=== PATIENT | female | born 1990 | race Caucasian/White ===

== ENCOUNTER → 2016-10-03 | Outpatient (CLI) | payer OTHER ==
[2016-10-03 13:43] LABS: BASO # 0.3 K/mm3 (0.0-0.2); BASO % 3.2 % (0.0-1.0); EOS # 0.2 K/mm3 (0.0-0.50); LARGE UNSTAINED CELL # 0.2 K/mm3 (0.0-0.4); LARGE UNSTAINED CELL % 2.4 % (0.0-4.0); LYMPH # 1.9 K/mm3 (1.5-6.5); LYMPH % 16.7 % (24.0-44.0); MEAN CORPUSCULAR HEMOGLOBIN 32.1 pg (27.0-33.0); MEAN CORPUSCULAR HGB CONC 35.7 g/dl (32.0-36.5); MONO # 0.6 K/mm3 (0.0-0.8); MONO % 5.8 % (0.0-5.0); NEUTROPHILS # 6.8 K/mm3 (1.8-7.7); NEUTROPHILS % 69.9 % (36.0-66.0); PLATELET COUNT, AUTOMATED 225 k/mm3 (150-450); RED CELL DISTRIBUTION WIDTH 12.4 % (11.5-14.5); WHITE BLOOD COUNT 9.8 K/mm3 (4.0-10.0)
[2016-10-03 16:59] LABS: HIV SCRN NEGATIVE (NEGATIVE); HIV SCRN1 NEGATIVE (NEGATIVE)
[2016-10-03 17:00] LABS: CONTROL LINE INT CTR LINE PRESENT
[2016-10-05 10:25] LABS: HBsAg Prenatal NEGATIVE (NEGATIVE)
== END ==
LOC: M SMT 09:50
PROVIDERS: ATTEND Obstetrics & Gynecology
DX: Z34.81 Encounter for supervision of other normal pregnancy, first trimester (principal)

== ENCOUNTER → 2016-11-08 | Outpatient (CLI) | payer OTHER | LOC: M SMT 15:37 | PROVIDERS: ATTEND Advanced Practice Midwife | DX: Z13.79 Encounter for other screening for genetic and chromosomal anomalies (principal); Z3A.00 Weeks of gestation of pregnancy not specified ==

== ENCOUNTER → 2016-11-22 | Outpatient (REF) | payer OTHER | LOC: M LAB REF 13:04 → EEVIPCON 13:04 | PROVIDERS: ATTEND Physician Assistant Medical | DX: L23.89 Allergic contact dermatitis due to other agents (principal) ==

== ENCOUNTER → 2017-01-04 | Outpatient (CLI) | payer OTHER ==
--- NOTE | 2017-01-05 03:46 | REP ---
Clinical: Anatomical evaluation. Comparison: None . Findings: Examination demonstrates a single live intrauterine in transverse (head to maternal right side) presentation. motion is identified by technologist. Placenta is noted posteriorly and grade zero without evidence for placenta previa or abruption. Amniotic fluid volume is normal. Cervix measures 4.0 cm in length and appears closed. No evidence for nuchal cord. Gestational age by current measurements 21 weeks 4 days with DEANA 05/13/2017 . FHR equals 147 beats per minute. BPD 5.2 cm 21 weeks 5 days HC 19.4 cm 21 weeks 4 days AC 17.7 cm 22 weeks 1 day FL 3.7 cm 21 weeks 5 days HL 3.7 cm 23 weeks 0 days HC/AC ratio 1.10 Estimated weight 476 grams ( 63rd percentile). Anatomical assessment demonstrates normal structures including cranium, choroid plexus, cavum, cerebellum/posterior fossa, facial features, lungs, four-chamber heart/ventricular outflow tracts, diaphragm, stomach, cord insertion/three-vessel cord, kidneys/bladder, spine, and extremities. Impression: Single live intrauterine in transverse lie. Anatomical assessment is complete and normal. Signed by Salas Guerra MD 01/05/2017 03:38 A
== END ==
LOC: M SMT 14:53
PROVIDERS: ATTEND Advanced Practice Midwife
DX: Z36 Encounter for antenatal screening of mother (principal); Z3A.21 21 weeks gestation of pregnancy

== ENCOUNTER → 2017-02-06 | Outpatient (CLI) | payer OTHER ==
[2017-02-06 17:22] LABS: MEAN CORPUSCULAR HEMOGLOBIN 33.4 pg (27.0-33.0); MEAN CORPUSCULAR HGB CONC 34.8 g/dl (32.0-36.5); MEAN CORPUSCULAR VOLUME 95.9 fl (80.0-96.0); RED CELL DISTRIBUTION WIDTH 12.7 % (11.5-14.5); WHITE BLOOD COUNT 12.3 K/mm3 (4.0-10.0)
== END ==
LOC: M SMT 14:36
PROVIDERS: ATTEND Advanced Practice Midwife
DX: Z34.82 Encounter for supervision of other normal pregnancy, second trimester (principal)

== ENCOUNTER → 2017-04-14 | Outpatient (REF) | payer OTHER ==
[~2017-04-14] MED LIST: ACET50TA PO; COLA100C5 PO; IBUP-1114 PO; PRENTAB9 PO; ROLA1CHW PO
== END ==
LOC: M LAB REF 17:28
PROVIDERS: ATTEND Specialist
DX: Z34.83 Encounter for supervision of other normal pregnancy, third trimester (principal)

== ENCOUNTER → 2017-04-19 | Outpatient (CLI) | payer OTHER ==
[2017-04-19 13:37] LABS: BASO % 0.4 % (0.0-1.0); EOS # 0.2 K/mm3 (0.0-0.50); EOS % 2.8 % (0.0-3.0); LARGE UNSTAINED CELL # 0.2 K/mm3 (0.0-0.4); LARGE UNSTAINED CELL % 2.8 % (0.0-4.0); LYMPH # 1.2 K/mm3 (1.5-6.5); MEAN CORPUSCULAR HEMOGLOBIN 32.3 pg (27.0-33.0); MEAN CORPUSCULAR HGB CONC 34.7 g/dl (32.0-36.5); MONO # 0.6 K/mm3 (0.0-0.8); MONO % 7.6 % (0.0-5.0); NEUTROPHILS # 5.3 K/mm3 (1.8-7.7); NEUTROPHILS % 70.4 % (36.0-66.0); PLATELET COUNT, AUTOMATED 161 k/mm3 (150-450); RED CELL DISTRIBUTION WIDTH 12.7 % (11.5-14.5); WHITE BLOOD COUNT 7.6 K/mm3 (4.0-10.0)
[2017-04-19 14:14] LABS: ALT/SGPT 16 U/L (12-78); AST/SGOT 19 U/L (15-37); BILIRUBIN,TOTAL 0.3 MG/DL (0.2-1.0); CREATININE FOR GFR 0.65 MG/DL (0.55-1.02); GLOMERULAR FILTRATION RATE > 60.0 (>60); URIC ACID 4.6 MG/DL (2.6-6.0)
== END ==
LOC: M SMT 11:11
PROVIDERS: ATTEND Advanced Practice Midwife
DX: O13.3 Gestational [pregnancy-induced] hypertension without significant proteinuria, third trimester (principal); Z3A.00 Weeks of gestation of pregnancy not specified

== ENCOUNTER → 2017-04-20 | Outpatient (REF) | payer OTHER ==
[2017-04-21 10:59] LABS: CREATININE, SERUM 0.7 MG/DL (0.6-1.0)
[2017-04-21 11:37] LABS: CREATININE CLEARANCE, URINE 95.6 ML/MIN (75-115)
== END ==
LOC: M LAB REF 10:21
PROVIDERS: ATTEND Advanced Practice Midwife
DX: O13.3 Gestational [pregnancy-induced] hypertension without significant proteinuria, third trimester (principal); Z3A.00 Weeks of gestation of pregnancy not specified

== ENCOUNTER 2017-04-21 15:20 | Inpatient (IN) | payer OTHER ==
[~2017-04-21] VITALS: Ht 160 cm; Wt 74.0 kg
[2017-04-21 15:42] VITALS: BP 141/89
[2017-04-21] MEDS ORDERED: PRENTAB9 PO (15:49)
[2017-04-21] MEDS ORDERED: ROLA1CHW PO (15:49)
[2017-04-21] MEDS ORDERED: LACTATED RINGER'S 1000 ML IV STA (16:53)
[2017-04-21 16:56] VITALS: BP 159/89
[2017-04-21] MEDS ORDERED: PROMETHAZINE INJ 25 MG/ML VIAL (J2550) IV ONE (17:00)
[2017-04-21] MEDS ORDERED: BUTORPHANOL 2 MG/ML INJ (J0595) IV ONE (17:00)
[2017-04-21 17:13] VITALS: BP 137/85
[2017-04-21] MEDS: miSOPROStol 50 MCG 1/2 TAB (S0191) PO SCH ×2 (17:14→21:23)
[2017-04-21 17:15] LABS: MEAN CORPUSCULAR HEMOGLOBIN 32.5 pg (27.0-33.0); MEAN CORPUSCULAR HGB CONC 35.2 g/dl (32.0-36.5); MEAN CORPUSCULAR VOLUME 92.3 fl (80.0-96.0); RED CELL DISTRIBUTION WIDTH 12.7 % (11.5-14.5); WHITE BLOOD COUNT 12.4 K/mm3 (4.0-10.0)
[2017-04-21 18:30] VITALS: BP 132/84
[2017-04-21] MEDS ORDERED: hydrOXYzine 50 MG TAB PO SCH (21:00)
[2017-04-21 22:25] LABS: MEAN CORPUSCULAR VOLUME 91.9 fl (80.0-96.0); RED CELL DISTRIBUTION WIDTH 13.2 % (11.5-14.5); WHITE BLOOD COUNT 12.4 K/mm3 (4.0-10.0)
[2017-04-21 22:52] LABS: ALT/SGPT 17 U/L (12-78); AST/SGOT 24 U/L (15-37); BILIRUBIN,TOTAL 0.3 MG/DL (0.2-1.0); CREATININE FOR GFR 0.53 MG/DL (0.55-1.02); GLOMERULAR FILTRATION RATE > 60.0 (>60); URIC ACID 4.4 MG/DL (2.6-6.0)
[2017-04-21] MEDS ORDERED: CALCIUM CARBONATE 500 MG CHEW U/D PO PRN (23:00)
[2017-04-22] VITALS (51 sets, daily range): BP systolic 111–174; BP diastolic 55–87
[2017-04-22] MEDS: miSOPROStol 50 MCG 1/2 TAB (S0191) PO SCH (01:46)
[2017-04-22] MEDS: PRENATAL VITAMINS CHEWABLE TABLET PO SCH (09:00)
[2017-04-22] MEDS ORDERED: OXYTOCIN 30 UNITS IN 0.9% NaCl 500ML IV BAG (J2590) As Ordered ONE (09:09)
[2017-04-22] MEDS ORDERED: OXYTOCIN DRIP 30 UNITS in APPROPRIATE DILUENT 1 EA IV SCH ×2 (09:15→17:27)
[2017-04-22] MEDS ORDERED: ONDANSETRON 4MG/2ML VIAL (J2405) As Ordered ONE (09:24)
[2017-04-22] MEDS ORDERED: ONDANSETRON 4MG/2ML VIAL (J2405) IV ONE (09:30)
[2017-04-22] MEDS ORDERED: FENTANYL 2MCG/ML ROPIVACAINE 0.2% IN 0.9% NACL 200ML IVBAG As Ordered ONE (10:04)
[2017-04-22] MEDS ORDERED: NALOXONE INJ 0.4 MG/1 ML VIAL (J2310) IV PRN (11:45)
[2017-04-22] MEDS ORDERED: ONDANSETRON 4MG/2ML VIAL (J2405) IV PRN (11:45)
[2017-04-22] MEDS ORDERED: ePHEDrine SULFATE 25 MG/5 ML(5MG/ML) SYRINGE IV PRN (11:45)
[2017-04-22] MEDS ORDERED: REFRIGERATOR IV KEYS XX PRN (11:45)
[2017-04-22] MEDS ORDERED: LACTATED RINGER'S 1000 ML IV PRN (11:45)
[2017-04-22] MEDS ORDERED: EPIDURAL COMMENT XX SCH (11:45)
[2017-04-22] MEDS ORDERED: diphenhydrAMINE INJ 50MG/ML VIAL (J1200) IV PRN (11:45)
[2017-04-22] MEDS ORDERED: EPIDURAL/PCA KEYS XX PRN (11:45)
[2017-04-22] MEDS ORDERED: FENTANYL/ROPIVACAINE/NACL BAG 200 ML EPIDURAL SCH (11:45)
--- NOTE | 2017-04-22 15:45 | HPE ---
DATE OF ADMISSION: 04/21/2017 A 27-year-old 1, estimated date of delivery 05/09/2017, presents at 37 weeks 2 days for induction of labor due to gestational hypertension per consult Dr. Diaz. Blood pressure in the office today at 142/84. Pre-eclamptic panel was within normal limits, just completed this week. Denies regular contractions, loss of fluid, or bleeding. Denies signs and symptoms of pre-eclampsia. Fetus is active. Last normal menstrual period 08/02/2016 for an estimated date of delivery (DEANA) of 05/09/2017. Sonogram at 9 weeks confirmed her date. Anatomy scan within normal limits. Uncomplicated until this week with onset of gestational hypertension. ALLERGIES: She has no known drug allergies. MEDICAL/SURGERY HISTORY: History of dental and elbow surgery. FAMILY HISTORY: Diabetes, heart disease, and hepatitis C. SOCIAL HISTORY: . Father of the baby and family supportive. Denies tobacco, alcohol, drugs, or abuse. Had one episodes alcohol detoxification after her father's in 2012. OBJECTIVE: Prepregnancy weight 120, total weight gain 48 pounds. O positive, antibody negative, rubella immune. VDRL, hepatitis B, hepatitis C, HIV, gonorrhea, chlamydia all negative. [place] was low risk. One-hour glucose 69. Group B streptococcus is negative. A 24-hour urine protein was 207.4 today. Blood pressure on admit 141/89. No apparent distress. Heart rate is regular. Respirations are easy. Abdomen is soft, gravid, longitudinal lie. Rare contractions. heart 145, moderate variability with accelerations. Sterile vaginal exam: Fingertip, 50% -2, moderate texture, slight posterior and cephalic. ASSESSMENT: Primipara at term, category 1, tracing, gestational hypertension for induction of labor. PLAN: Admit per consult, Dr. Diaz. Misoprostol cervical ripening. The patient plans to labor ad kalin, and report was given to Dr. Scott.
[2017-04-22] MEDS ORDERED: MEASLES,MUMPS,RUBELLA VACCINE INJ (MMR-II) (90707) SC SCH (17:30)
[2017-04-22] MEDS ORDERED: IBUPROFEN 800 MG TAB PO PRN (17:30)
[2017-04-22] MEDS ORDERED: ACETAMINOPHEN 500 MG TAB PO PRN (17:30)
[2017-04-22] MEDS ORDERED: METHYLERGONOVINE MALEATE 0.2 MG TAB PO PRN (17:30)
[2017-04-22] MEDS ORDERED: DIBUCAINE 1% OINTMENT 30GM TOP PRN (17:30)
[2017-04-22] MEDS ORDERED: DOCUSATE SODIUM 100 MG CAP PO PRN (17:30)
[2017-04-22] MEDS ORDERED: RHOGAM 300 MCG (1500 IU) INJ (J2790) IM SCH (17:30)
[2017-04-22 17:39] LABS: CORD GAS HCO3 V 25.2 MEQ/L; CORD GAS O2 SAT V 62.8 %; CORD GAS PCO2 V 51.8 mmHg; CORD GAS PH V 7.305 UNITS; CORD GAS SBC V 21.9 MEQ/L; CORD GAS TCO2 V 26.8 MEQ/L
[2017-04-22 17:40] LABS: CORD GAS ABE A -4.4; CORD GAS HCO3 A 24.3 MEQ/L; CORD GAS O2 SAT A 46.6 %; CORD GAS PCO2 A 59.3 mmHg; CORD GAS PH A 7.231 UNITS; CORD GAS PO2 A 24.4 mmHg; CORD GAS SBC A 19.6 MEQ/L; CORD GAS TCO2 A 26.2 MEQ/L
[2017-04-22 19:07] LABS: ALT/SGPT 13 U/L (12-78); AST/SGOT 22 U/L (15-37); BILIRUBIN,TOTAL 0.4 MG/DL (0.2-1.0); CREATININE FOR GFR 0.55 MG/DL (0.55-1.02); GLOMERULAR FILTRATION RATE > 60.0 (>60); URIC ACID 4.2 MG/DL (2.6-6.0)
[2017-04-23 06:00] VITALS: BP 115/63
[2017-04-23 07:39] LABS: WHITE BLOOD COUNT 14.8 K/mm3 (4.0-10.0)
[2017-04-23 07:40] LABS: MEAN CORPUSCULAR HGB CONC 34.3 g/dl (32.0-36.5); MEAN CORPUSCULAR VOLUME 93.4 fl (80.0-96.0); RED CELL DISTRIBUTION WIDTH 13.1 % (11.5-14.5)
[2017-04-23] MEDS: PRENATAL VITAMINS CHEWABLE TABLET PO SCH (08:58)
[2017-04-23 10:00] VITALS: BP 125/52
[2017-04-23 14:00] VITALS: BP 131/72
[2017-04-23 18:07] VITALS: BP 140/89
[2017-04-23 20:00] VITALS: BP 140/89
[2017-04-24 06:00] VITALS: BP 118/72
[2017-04-24] MEDS: PRENATAL VITAMINS CHEWABLE TABLET PO SCH (07:44)
--- NOTE | 2017-04-24 08:58 | DN ---
DATE OF DELIVERY: 04/22/2017 Jayne is a 27-year-old female who was admitted at 39 weeks gestation for induction. She underwent three doses of Cytotec followed by a Fischer bulb with Pitocin induction and artificial rupture of membranes. She then progressed to fully dilated, delivered a live male in right occiput anterior position. 9 and 9, weight 7 pounds 3 ounces. Placenta delivered spontaneously intact, three-vessel cord. First-degree vaginal wall laceration noted which was repaired using 3-0 chromic. Estimated blood loss 300 mL. Both mother and baby in stable condition.
[2017-04-24 09:40] VITALS: BP 130/79
[2017-04-24] MEDS ORDERED: IBUP-1114 PO (10:38)
[2017-04-24] MEDS ORDERED: COLA100C5 PO (10:38)
[2017-04-24] MEDS ORDERED: ACET50TA PO (10:38)
== END 2017-04-24 18:00 | disposition home or self-care (01) | DRG 775 ==
LOC: M LDI 15:20 → M OBS 04-22 20:08
PROVIDERS: ADMIT Obstetrics & Gynecology; ATTEND Obstetrics & Gynecology
PROC: 3E033VJ Introduction of Other Hormone into Peripheral Vein, Percutaneous Approach (ICD-10-PCS; 2017-04-21)
PROC: 10907ZC Drainage of Amniotic Fluid, Therapeutic from Products of Conception, Via Natural or Artificial Opening (ICD-10-PCS; 2017-04-21)
PROC: 3E0P7GC Introduction of Other Therapeutic Substance into Female Reproductive, Via Natural or Artificial Opening (ICD-10-PCS; 2017-04-21)
PROC: 10E0XZZ Delivery of Products of Conception, External Approach (ICD-10-PCS; principal; 2017-04-22)
PROC: 0HQ9XZZ Repair Perineum Skin, External Approach (ICD-10-PCS; 2017-04-22)
DX: O13.4 Gestational [pregnancy-induced] hypertension without significant proteinuria, complicating childbirth (principal); Z37.0 Single live birth; Z3A.37 37 weeks gestation of pregnancy; O70.0 First degree perineal laceration during delivery